=== PATIENT | male | born 1970 | race Two or more races ===

== ENCOUNTER 2023-07-07 16:32 | Inpatient (IN) | payer OTHER ==
[2023-07-07 18:21] VITALS: BMI 21.7
[2023-07-07] MEDS ORDERED: METOPROLOL TARTRATE 25 MG TABLET (FP) PO ONE (19:30)
[2023-07-07] MEDS ORDERED: chlordiazePOXIDE HCL 25 MG CAPSULE PO PRN (19:41)
[2023-07-07] MEDS ORDERED: LOPERAMIDE HCL 2 MG CAPSULE PO PRN (19:42)
[2023-07-07] MEDS ORDERED: ONDANSETRON *ODT* 4 MG TABLET SL PRN (19:42)
[2023-07-07] MEDS ORDERED: IBUPROFEN 600 MG TABLET (FP) PO PRN (19:42)
[2023-07-07] MEDS ORDERED: BENZONATATE 200 MG CAPSULE PO PRN (19:42)
[2023-07-07] MEDS ORDERED: MAG HYDROX/AL HYDROX/SIMETH 30 ML UNIT-DOSE CUP PO PRN (19:42)
[2023-07-07] MEDS ORDERED: NICOTINE POLACRILEX 2 MG GUM BUC PRN (19:42)
[2023-07-07] MEDS ORDERED: MAGNESIUM HYDROX 2400MG/30ML ORAL SUSPENSION 30 ML CUP PO PRN (19:42)
[2023-07-07] MEDS ORDERED: IBUPROFEN 400 MG TABLET (FP) PO PRN (19:42)
[2023-07-07] MEDS ORDERED: DICYCLOMINE HCL 10 MG CAPSULE PO PRN (19:42)
[2023-07-07] MEDS ORDERED: ACETAMINOPHEN 325 MG TABLET (FP) PO PRN (19:42)
[2023-07-07] MEDS ORDERED: BENZOCAINE/MENTHOL (CHLORASEPTIC ) LOZENGE MM PRN (19:42)
[2023-07-07] MEDS ORDERED: BISMUTH SUBSALICYLATE 524 MG/30 ML PO PRN (19:42)
[2023-07-07] MEDS ORDERED: POLYETHYLENE GLYCOL (HEALTHYLAX) 3350 17 GM PACKET PO PRN (19:42)
[2023-07-07] MEDS ORDERED: guaiFENesin 600 MG TABLET.ER (FP) PO PRN (19:42)
[2023-07-07] MEDS ORDERED: P-EPHED 60MG/TRIPROLIDI 2.5MG TABLET PO PRN (19:42)
[2023-07-07] MEDS ORDERED: METOPROLOL TARTRATE 25 MG TABLET (FP) ONE (20:04)
[2023-07-07] MEDS: chlordiazePOXIDE HCL 25 MG CAPSULE PO SCH (22:32)
[2023-07-07] MEDS: THIAMINE HCL 100 MG TABLET (FP) PO SCH (22:32)
[2023-07-07] MEDS: MELATONIN 5 MG TABLETS PO SCH (22:33)
[2023-07-08] MEDS: chlordiazePOXIDE HCL 25 MG CAPSULE PO SCH ×4 (06:05→22:34)
[2023-07-08 09:07] LABS: HEMATOCRIT 39.4 % (35.4-49); HEMOGLOBIN 13.7 GM/dL (11.7-16.9); MCH 32.2 pg (25.7-33.7); MCHC 34.7 g/dl (32.0-35.9); MEAN CELL VOLUME 92.8 fl (80-96); MEAN PLT VOLUME 7.4 fl (7.5-11.1); PLATELET COUNT 332 10^3/uL (134-434); RBC 4.24 M/mm3 (4.00-5.60); RDW 15.4 % (11.9-15.9); WHITE BLOOD COUNT 6.9 K/mm3 (4.0-10.0)
[2023-07-08 09:10] LABS: CHLORIDE 107 mmol/L (98-107); POTASSIUM 3.2 mmol/L (3.5-5.1); SODIUM 140 mmol/L (136-145)
[2023-07-08 09:24] LABS: ALBUMIN 2.9 g/dl (3.4-5.0); CALCIUM 8.4 mg/dL (8.5-10.1)
[2023-07-08 09:25] LABS: ANION GAP 5 mmol/L (4-13); BLOOD UREA NITROGEN 24.8 mg/dL (7-18); CO2 27 mmol/L (21-32); GLUCOSE,RANDOM 129 mg/dL (74-106)
[2023-07-08 09:27] LABS: SGPT/ALT 16 U/L (13-61)
[2023-07-08 09:28] LABS: BILIRUBIN,TOTAL 0.2 mg/dL (0.2-1); CREATININE 1.5 mg/dL (0.55-1.3); SGOT/AST 13 U/L (15-37); TOT PROT 5.4 g/dl (6.4-8.2)
[2023-07-08 09:30] LABS: ALK PHOS 61 U/L (45-117)
[2023-07-08] MEDS ORDERED: POTASSIUM CHLORIDE ORAL LIQUID 20 MEQ/15 ML PO ONE (10:37)
[2023-07-08] MEDS: PRENATAL VITAMINS W/ FOLIC ACID TABLET (FP) PO SCH (10:54)
[2023-07-08] MEDS: LISINOPRIL 20 MG TABLET PO SCH (10:54)
[2023-07-08] MEDS: HYDROCHLOROTHIAZIDE 12.5 MG CAPSULE (FP) PO SCH (10:54)
[2023-07-08] MEDS: THIAMINE HCL 100 MG TABLET (FP) PO SCH (22:34)
[2023-07-08] MEDS: MELATONIN 5 MG TABLETS PO SCH (22:36)
[2023-07-09] MEDS: chlordiazePOXIDE HCL 25 MG CAPSULE PO SCH ×2 (05:34→10:25)
[2023-07-09] MEDS: HYDROCHLOROTHIAZIDE 12.5 MG CAPSULE (FP) PO SCH (09:57)
[2023-07-09] MEDS: PRENATAL VITAMINS W/ FOLIC ACID TABLET (FP) PO SCH (09:58)
[2023-07-09] MEDS: METHOCARBAMOL 500 MG TABLET PO PRN (09:58)
[2023-07-09] MEDS: LISINOPRIL 20 MG TABLET PO SCH (09:58)
[2023-07-09 15:34] LABS: POTASSIUM 3.9 mmol/L (3.5-5.1)
[2023-07-09 15:37] LABS: BLOOD UREA NITROGEN 13.8 mg/dL (7-18)
[2023-07-09 15:41] LABS: CREATININE 1.3 mg/dL (0.55-1.3)
[2023-07-09] MEDS: cloNIDine HCL 0.1 MG TABLET PO PRN (17:15)
[2023-07-09] MEDS: chlordiazePOXIDE HCL 10 MG CAPSULE PO SCH ×2 (17:40→22:58)
[2023-07-09] MEDS: hydrOXYzine PAMOATE 25 MG CAPSULE (FP) PO PRN (20:40)
[2023-07-09] MEDS: MELATONIN 5 MG TABLETS PO SCH (22:58)
[2023-07-09] MEDS: THIAMINE HCL 100 MG TABLET (FP) PO SCH (22:58)
[2023-07-10] MEDS ORDERED: chlordiazePOXIDE HCL 10 MG CAPSULE PO PRN
[2023-07-10] MEDS: chlordiazePOXIDE HCL 10 MG CAPSULE PO SCH ×4 (06:00→22:26)
[2023-07-10] MEDS: cloNIDine HCL 0.1 MG TABLET PO PRN ×2 (06:05→17:31)
[2023-07-10] MEDS: HYDROCHLOROTHIAZIDE 12.5 MG CAPSULE (FP) PO SCH (10:25)
[2023-07-10] MEDS: LISINOPRIL 20 MG TABLET PO SCH (10:25)
[2023-07-10] MEDS: PRENATAL VITAMINS W/ FOLIC ACID TABLET (FP) PO SCH (10:25)
[2023-07-10] MEDS: THIAMINE HCL 100 MG TABLET (FP) PO SCH (22:23)
[2023-07-10] MEDS: MELATONIN 5 MG TABLETS PO SCH (22:24)
[2023-07-10] MEDS: hydrOXYzine PAMOATE 25 MG CAPSULE (FP) PO PRN (22:25)
[2023-07-11] MEDS: chlordiazePOXIDE HCL 10 MG CAPSULE PO SCH ×3 (05:58→17:57)
[2023-07-11] MEDS: LISINOPRIL 20 MG TABLET PO SCH (10:05)
[2023-07-11] MEDS: METHOCARBAMOL 500 MG TABLET PO PRN (10:05)
[2023-07-11] MEDS: HYDROCHLOROTHIAZIDE 12.5 MG CAPSULE (FP) PO SCH (10:05)
[2023-07-11] MEDS: cloNIDine HCL 0.1 MG TABLET PO PRN ×2 (10:05→17:55)
[2023-07-11] MEDS: hydrOXYzine PAMOATE 25 MG CAPSULE (FP) PO PRN (10:05)
[2023-07-11] MEDS: PRENATAL VITAMINS W/ FOLIC ACID TABLET (FP) PO SCH (10:05)
[2023-07-11] MEDS: amLODIPine BESYLATE 10 MG TABLET (FP) PO SCH (14:29)
[2023-07-11] MEDS: MELATONIN 5 MG TABLETS PO SCH (22:48)
[2023-07-11] MEDS: THIAMINE HCL 100 MG TABLET (FP) PO SCH (22:48)
[2023-07-12] MEDS: cloNIDine HCL 0.1 MG TABLET PO PRN (03:20)
[2023-07-12] MEDS ORDERED: chlordiazePOXIDE HCL 10 MG CAPSULE PO ONE (05:00)
[2023-07-12] MEDS: amLODIPine BESYLATE 10 MG TABLET (FP) PO SCH (09:27)
[2023-07-12] MEDS: LISINOPRIL 20 MG TABLET PO SCH (09:27)
[2023-07-12] MEDS: PRENATAL VITAMINS W/ FOLIC ACID TABLET (FP) PO SCH (09:27)
[2023-07-12 09:55] VITALS: BP 158/98; PULSE 84; RESP 16; TEMP 98.6
[2023-07-12] MEDS ORDERED: HYDROCHLOROTHIAZIDE 25 MG TABLET (FP) PO SCH (10:00)
== END 2023-07-12 09:44 | disposition home or self-care (01) | DRG 774 ==
LOC: YASAS 16:32 → Y6N 20:24
PROVIDERS: ADMIT Allergy & Immunology; ATTEND Surgery
PROC: HZ2ZZZZ Detoxification Services for Substance Abuse Treatment (ICD-10-PCS; principal; 2023-07-07)
DX: F10.230 Alcohol dependence with withdrawal, uncomplicated (principal); F14.20 Cocaine dependence, uncomplicated; F16.20 Hallucinogen dependence, uncomplicated; F17.210 Nicotine dependence, cigarettes, uncomplicated; E87.6 Hypokalemia; I10 Essential (primary) hypertension; Z86.73 Personal history of transient ischemic attack (TIA), and cerebral infarction without residual deficits; Z88.0 Allergy status to penicillin; Z59.00 Homelessness unspecified
CPT/HCPCS: 36415; 80053; 80307; 82565; 84132; 84520; 85027; 86780; 87635; 93005; 93010